=== PATIENT | female | born 1975 | race Caucasian/White ===

== ENCOUNTER 2020-04-26 12:43 | Outpatient (REF) | payer BC, SELFPAY | END 2020-04-26 12:44 | disposition home or self-care (01) | LOC: HO.LAB 12:43 | PROVIDERS: Visit Provider Internal Medicine | DX: Z20.822 Contact with and (suspected) exposure to COVID-19 (principal) | CPT/HCPCS: 36415; C9803; U0003; U0005 ==

== ENCOUNTER 2024-02-25 11:31 | Outpatient (AMB) | payer BC, SELFPAY ==
--- NOTE | 2024-02-25 11:32 | MHC.OFFVIS ---
Vital Signs 02/25/24 11:42 Height 4 ft 11 in Weight 148 lb 2.41 oz BMI 29.9 BP 106/70 Blood Pressure Location Lt brachial Position Sitting Pulse 76 Intake Visit Reasons: pre colonoscopy Intake Note: New patient in office today for colonoscopy screening. CC: Patient reports having a colonoscopy about 20 years ago for rectal bleeding but they did not find any issues . Patient c/o constipation, abdominal pain sometimes, and hearburn sometimes. Allergies No Known Allergies Allergy (Verified 02/25/24 11:44) HPI HPI pre colonoscopy: Details: 48-year-old male here for preprocedural meeting to discuss a screening colonoscopy. He is referred by [facility] adult [facility] in [facility]. PMX Aortic heart murmur High cholesterol IBS * SURGICAL HISTORY * ALLERGIES: NKDA * [place] [facility] LABS: NO CURRENT LABS TODAY'S VISIT She needs to go for labs. 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 This is controlled if she eats well. She also suffers HB but also is having increased anxiety and brain fog. She denies any cardiac or respiratory problems. No prior problems with anesthesia or sedation. No ID problems. There is no known FHX of crc or polyps. [facility] Surgical History (Updated 02/25/24 @ 11:46 by JESUSITA Lal) H/O foot surgery H/O colonoscopy History of section Family History (Updated 02/25/24 @ 11:47 by JESUSITA Lal) Paternal Aunt Pancreatic cancer Paternal Aunt Lung cancer Social History (System 04/16/21 @ 11:39 by Patricai Collins) Alcohol intake: current Alcohol intake frequency: holidays/special occasions only Patient Tobacco Use Status: Never used Tobacco Review of Systems Const Denies fatigue, Denies fever(s), Denies night sweats, Denies poor appetite and Denies weight loss ENT Reports Normal hearing present, Denies dental pain, Denies dysphagia, Denies hearing loss, Denies mouth pain, Denies odynophagia, Denies throat swelling, Denies tongue swelling and Reports other (Dentition adequate) Card Reports no additional complaints Resp Reports no additional complaints GI Details: Denies abdominal pain, Denies melena, Denies bloating, Denies hematochezia, Reports constipation, Denies GI cramping, Denies dysphagia, Denies excessive flatus, Denies early satiety, Denies heartburn, Denies diarrhea, Denies nausea, Denies odynophagia, Denies vomiting and Denies hematemesis Skin/Breast Denies pruritus, Denies lesions, Denies rash and Denies jaundice Neuro Reports Normal hearing present and Denies Abnormal speech present Endo Denies fatigue Aller/Immun Denies throat swelling and Denies tongue swelling Physical Exam Const General: cooperative, no acute distress, well developed and well groomed Nutritional Appearance: average body habitus and well nourished Orientation/consciousness: oriented to person, oriented to place and oriented to time Limitations: No language barrier HEENT Head: Yes normocephalic and Yes atraumatic Eyes General: appearance normal, both eyes and all related structures Pupils: Equal, round and reactive pupils present Neck Neck: Yes normal visual inspection and Yes no lymphadenopathy Thyroid: Thyroid normal Resp Effort & Inspection: normal respiratory effort and able to speak in complete sentences Auscultation: clear to auscultation bilaterally Cardio Rate: regular rate Rhythm: regular rhythm Heart sounds: Normal, physiologic split S2 sound present Peripheral pulses: radial pulses present and posterior tibial pulses present GI Inspection: No distended and No Abdominal panniculus present Palpation (GI): Soft to palpation, nontender, no guarding, not rigid and No hepatosplenomegaly present Percussion: Yes normal to percussion Auscultation: normal bowel sounds Rectal Exam - Female: deferred Skin General skin exam: no rashes or lesions noted, turgor normal, skin not dry, no jaundice, No spider nevi and no striae Rashes: no rashes Nails: normal Neuro General: oriented to person, oriented to place and oriented to time Cranial nerves: Yes Equal, round and reactive pupils present and Yes Normal hearing present Speech: No Abnormal speech present Extrem General: Yes normal to inspection, No clubbing, No cyanosis and No edema Psych Appearance: grossly normal and well kempt Mental Status: mental status grossly normal Speech and movement: Normal speech and movement present Affect: normal affect Attitude: cooperative Thought process: Normal thought process present and not confabulating Thought content: Normal thought content present Insight: Fair insight present (Psych) Judgement: Fair judgement present (Psych) Assessment & Plan Assessment & Plan (1) Pre-op examination: Code(s): Z01.818 - Encounter for other preprocedural examination Category: Medical Plan She needs to go for labs. 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 This is controlled if she eats well. She also suffers HB but also is having increased anxiety and brain fog. She denies any cardiac or respiratory problems. No prior problems with anesthesia or sedation. No ID problems. There is no known FHX of crc or polyps Coding Level of Care Code New Pt Level 3 (22255) Diagnoses Pre-op examination Z01.818
[2024-02-25 11:42] VITALS: BP 106/70; PULSE 76; BMI 29.9
== END 2024-02-25 12:10 | disposition home or self-care (01) ==
PROVIDERS: Visit Provider Nurse Practitioner
DX: Z01.818 Encounter for other preprocedural examination (principal); Z12.11 Encounter for screening for malignant neoplasm of colon
CPT/HCPCS: S0285

== ENCOUNTER → 2024-02-25 11:31 | Outpatient (BNVA) | payer BC, SELFPAY | PROVIDERS: Visit Provider Nurse Practitioner ==

== ENCOUNTER 2024-04-29 10:24 | Outpatient (REF) | payer BC, SELFPAY ==
[2024-04-29 10:38] LABS: MANUAL DIFF FLAG NO
--- OUTSIDE RECORDS SUMMARY | 2024-04-29 11:16 | XMS_ITS ---
Author Organization [facility] Address [address] [place] [address] Care Team Providers Care Harness Mender Name Role Phone Shun AUTOMATION ENGINEERING MANAGER, Hailey Primary Care Provider Unavail able Donna Gagnon Unavailable [phone] REASON FOR VISIT Pedag OTs Encounters Encounter Location Date Provider Diagnosis [facility] [address] [place] [address] 05/15/2023 Donna Gagnon Plan Of Treatment No Information Progress Notes * Hanny GALEAS MDOB:1975 (47 yo F)Acc No.[id number]:05/15/2023 Patient:?Hanny Galeas :1975???Age:47 Y???Sex:Female Address:[address] [place] [address], [address] * true * Date:? Generated for Printi ng/Aislinng/eTransmitting on:?04/29/2024 11:16 AM EST
--- OUTSIDE RECORDS SUMMARY | 2024-04-29 11:17 | XMS_ITS ---
Author Organization [facility] Address [address] [place] [address] Care Team Providers Care Brass And Wind Instrument Repairer Name Role Phone Shun MANUFACTURER'S REPRESENTATIVE, Hailey Primary Care Provider Unavail able Donna Gagnon Unavailable [phone] REASON FOR VISIT DME L3000 Encounters Encounter Location Date Provider Diagnosis [facility] [address] [place] [address] 05/15/2023 Donna Gagnon Plan Of Treatment No Information Progress Notes * Hanny GALEAS MDOB:1975 (47 yo F)Acc No.[id number]:05/15/2023 Patient:?Hanny Galeas :1975???Age:47 Y???Sex:Female Address:[address] [place] [address], [address] * true * Date:? Generated for Printi ng/Aislinng/eTransmitting on:?04/29/2024 11:16 AM EST
--- OUTSIDE RECORDS SUMMARY | 2024-04-29 11:17 | XMS_ITS ---
Author Organization [facility] Address [address] [place] [address] Care Team Providers Care Gem Carver Name Role Phone Shun BACK, Hailey Primary Care Provider Unavail able Donna Gagnon Unavailable [phone] Allergies No Known Allergies REASON FOR VISIT Pcp-09/05, Foot pain Medications Medication SIG (Take, Route, Fr equency, Duration) Notes Start Date End Date Status Multivitamin Active Advil 200 MG 2 tablet with food o r milk as needed Orally PRN Active Percocet Not-Taking Social History Tobacco Use: Social History Observation Description Date Details (start date - stop date) Never Smoker NA - NA Tobacco Use/Smoking Question Answer Notes Are you a: nonsmoker Additional Findings: Tobacco Non-User Current no n-smoker Alcohol Screen Question Answer Notes Did you have a drink contain ing alcohol in the past year? Yes How often did you have a dri nk containing alcohol in the past year? 2 to 3 times a week (3 points) Points 3 Interpretation Positive Tobacco use other than smoking: Question Answer Notes Are you an other tobacco user? No Vital Signs Height 4ft 11in in 05/15/2023 Weight 145 lbs 05/15/2023 BMI 29.28 kg/m2 05/15/2023 Encounters Encounter Location Date Provider Diagnosis [facility] [address] [place] [address] 05/15/2023 Donna Gagnon Primary osteoarthrit is of left foot M19.072 ; Sesamoiditis of left foot M25.872 ; Hallux limitus of left foot M20.5X2 and Pain in left foot M79.672 Assessments Encounter Date Diagnosis (ICD Code) Assessment Notes Treatment Notes Treatment Clinical Notes Section Notes 05/15/2023 Primary osteoarthritis of left foot (ICD-10 - M19.072) 05/15/2023 Sesamoiditis of left foot (ICD-10 - M25.872) 05/15/2023 Hallux limitus of left foot (ICD-10 - M20.5X2) 05/15/2023 Pain in left foot (ICD-10 - M79.672) Plan Of Treatment Next Appt Details Follow Up: prn, Reason: Infe ction Progress Notes * Hanny GALEAS MDOB:1975 (47 yo F)Acc No.[id number]:05/15/2023 Progress Note Patient:?Hanny Galeas Provider:?Donna Gagnon DPM :1975???Age:47 Y???Sex:Female D ate:05/15/2023 Address:[address] [place], [place] [id number] Pcp:Hailey Hoffmann NP Subjective: * Chief Complaints: * ???Pcp-09/05Foot pain * HPI: ???Foot Pain:?Nature:?aching , tenderness , stiffness.?Location:?Inside, Great toe joint, LEFT.?Duration:?several months.?Onset:?gradual , denies trauma.?Course:?unresolved.?Aggrevated:?any pressure , standing , walking , shoes.?Treatments:?rest/alter normal daily activity , change in shoes; Pt had previous Cheilectomy-relates pain at previous spur location resolved innersoles.? * ROS:?General/Constitutional:?Nausea?denies, denies.?Vomiting?denies, denies.?Hunger Thirst?denies, denies.?Loss appetite?denies, denies.?Chills?denies, denies.?Fatigue?denies, denies.?Fever?denies, denies.?Night Sweats denies, denies.?Unexplained weight loss?denies, denies.?Unexplained weight gain?denies, denies.?HEENTM:?Dentures?denies, denies.?Dizziness?denies, denies.?Glasses/contacts?denies, denies.?Retinopathy?denies, denies.?Blurred/double vision?denies, denies.?TMJ?denies, denies.?Discharge/drainage?denies, denies.?Implants?denies, denies.?Sore throat?denies, denies.?Dental implants?denies, denies.?Hard of hearing ?denies, denies.?Difficulty chewing/swallowing/speaking?denies, denies.?Nose bleeds?denies, denies.?Sore mouth?denies, denies.?Respiratory:?On Oxygen?denies, denies.?Pneumonia/pleurisy?denies, denies.?Bronchitis?denies, denies.?Emphysema?denies, denies.?Coughing?denies, denies.?Cough blood?denies, denies.?Shortness of breath?denies, denies.?Wheezing?denies, denies.?Cardiovascular:?Pacemaker?denies, denies.?MVP?denies, denies.?WPW?denies, denies.?CHF?denies, denies.?Heart attack?denies, denies.?Septal defect?denies, denies.?Rapid beat?denies, denies.?Chest pain ?denies, denies.?Atrial Fib.?denies, denies.?Murmur/Palpitations?denies, denies.?Gastrointestinal:?Hemorrhoids?denies, denies.?Stomach/Abdominal pain?denies, denies.?Dark blood stool?denies, denies.?Irritable bowel ?denies, denies.?Constipation?denies, denies.?Diarrhea?denies, denies.?Hematology:?Swelling?denies, denies.?Clots?denies, denies.?Varicose Veins?denies, denies.?Bruising?denies, denies.?Bleeding problem?denies, denies.?Genitourinary:?Blood urine?denies, denies.?Frequent/Painfu/urination/bladder control?denies, denies.?Kidney stones?denies, denies.?Infection (UTI)?denies, denies.?Nephropathy?denies, denies.?sex trans dis (STD)?denies, denies.?Prostate?denies, denies.?Musculoskeletal:?Hammertoes?denies, denies.?Bunions?admits, admits.?Back Pain?denies, denies.?Muscle Cramps/ Resting?denies, denies.?Muscle cramps / walking?denies, denies.?Generalized aches and pains?denies, denies.?Weakness?denies, denies.?Integ.:?Andrews?denies, denies.?Scars?denies, denies.?Corns/calluses?denies, denies.?Ingrown nails?denies, denies.?Painful nails?denies, denies.?Open Sores?denies, denies.?Rashes?denies, denies.?Neurologic:?Difficulty sleeping?denies, denies.?Brain disorder?denies, denies.?Numbness?denies, denies.?Balance trouble?denies, denies.?Confusion?denies, denies.?Fainting/blackouts?denies, denies.?Tingling?denies, denies.?Tremors?denies, denies.? * Medical History:? * Surgical History:? X4 (09/11/08, 12/21/10, 07/13/14, 01/22/16) 09/11/08-01/22/2016left foot surgery 08/01/2020 * Hospitalization/Major Diagno stic Procedure:?Denies Past Hospitalization * Family History:?Mother: hugh crabtree?Father: alive, Stroke, diagnosed with Unspecified heart disease.? * Social History:?Tobacco Use:?Tobacco Use/Smoking?Are you a:?nonsmoker ?Additional Findings: Tobacco Non-User?Current non-smoker ?Tobacco use other than smoking?Are you an other tobacco user??No ???Drugs/Alcohol:?Drugs?Have you used drugs other than those for medical reasons in the past 12 months??No ?Alcohol Screen?Did you have a drink containing alcohol in the past year??Yes ?How often did you have a drink containing alcohol in the past year??2 to 3 times a week (3 points) ?Points?3 ?Interpretation?Positive ???Miscellaneous:?Caffeine: yes, frequency:, 3-5 cups per day. ?Children: yes, 4. ?Exercise: yes, walking, bike riding, dress. ?Marital status: . ?Occupation: [employer]. * Medications:?TakingAdvil 200 MG Tablet 2 tablet with food or milk as needed Orally PRNMultivitamin Taking Advil 200 MG Tablet 2 tablet with food or milk as needed Orally PRNTaking Multivitamin Not-Taking/PRNPercocet Medication List reviewed and reconciled with the patientNot-Taking/PRN Percocet Medication List reviewed and reconciled with the patient * Allergies:?N.K.D.A.yes[Aller gies Verified] Objective: * Vitals:?Ht: 4ft 11in, Wt:145 , BMI:29.28, Shoe size: 6.5, Ht-cm: 149.86 cm, Wt- k.77 kg. * Examination: ???General Examination: ?GENERAL APPEARANCE:?Reveals a pleasant, alert, well-nourished, well- developed, well hydrated individual, who demonstrates proper attention to hygiene/body habitus, and is in no acute distress, Pt serves as own?historian for office visit today.?ORIENTED:?person, place, and time.?Neurological: ?SENSORY:?Neurological exam reveals intact sensorium, pain sensation normal, vibration sensation intact, pinprick sensation is normal in the lower extremities, Pt denies, anesthesia, burning, paresthesia, tingling, B/L.?TINEL'S COMPRESSION:? Negative, Saphenous nerve distribution.?DEEP TENDON REFLEXES:?Achilles, 2/4, B/L.?Vascular: ?DP PULSES:?3/4, B/L.?PT PULSES:?3/4, B/L.?CAPILLARY FILL TIME:?immediate, all digits, B/L.?SKIN TEMPERTURE GRADIENT OF THE LOWER EXTERMITIES:?warm to cool, proximal to distal, B/L.?HAIR GROWTH/TEXTURE/ELASTICITY/TURGOR:?normal, B/L.?PIGMENTATION:?normal, B/L.?EDEMA:?absent, B/L.?Dermatologic: ?SKIN FINDINGS:?Skin exam reveals normal texture, elasticity, and turgor. There are no masses. The interspaces are clear.?Orthopedic: ?MUSCLE STRENGTH:?5/5 all groups in a symmetrical fashion , B/L.?BUNION:?(+) Pain on palpation , Limited 1st MPJ Dorsal ROM , Limited 1st MPJ Plantar ROM , LEFT , Pain on Palpation to Sesamoid.? Assessment: * Assessment: 1.?Primary osteoarthritis of left foot - M19.072, Chronic problem, Worse (4)?2.?Sesamoiditis of left foot - M25.872 (Primary)?3.?Hallux limitus of left foot - M20.5X2?4.?Pain in left foot - M79.672? Plan: * Treatment: * Procedure Codes:? * Preventive Medicine:? ??Counseling:?Discussion:?-13: Office or other outpatient visit for the evaluation and management of an established patient, which required a medically appropriate history and/or examination and LOW level of DECISION MAKING for: 1 STABLE ACUTE UNCOMPLICATED PROBLEM, 2 OR MORE MINOR PROBLEMS, OR 1 STABLE CHRONIC PROBLEM, THAT POSE(S) A LOW RISK FOR MORBIDITY/MORTALITY. The visit on the day of the encounter encompassed interpreting the data and educating the patient as to the nature of their condition, treatment options available according to their individual PMH, meds, allergies, and overall health/living conditions, as well as any potential risks or complications that may occur from a failure to adhere to, and participate in, the recommended course of therapy. The discussion included a complete verbal, and/or written explanation of the examination results, any x-rays taken, the proposed diagnosis, and outline of the treatment plan. A schedule for future care needs was also explained. The patient verbalized an understanding of the instructions at this time and agreed to be an active participant in their treatment. If the patient should think of any questions or concerns after the visit, I have encouraged the patient to call the office.?Arthritis:?The patient was counseled on the various etiologies for their Arthritis including genetic, history of injury or trauma, abnormal foot biomechanics leading to excessive joint wear, and use/overuse. We discussed the various treatment options from no treatment, to topical analgesics such as Biofreeze gel, Aspercream, Voltaren gel, Lidoderm patches, CBD oils, THC creams, and Custom-compounded topical cream preparations to natural oral products such as Glucosamine Sulfate/Chondroitin/MSM/Collegen to analgesic Tylenol, to anti-inflammatory medications such as Ibuprofen/Naproxen, and the use of oral steroids if needed. Cardiac, Kidney, and GI issues were discussed RE: potential complications of oral anti-inflammatories. We discussed several other treatment options consisting of accom shoes, supportive innersoles, AFO bracing/support, cortisone injection therapy, and surgical resection of the arthritic joint(s) or fusion reconstruction if necessary. We discussed the advantages and disadvantages of conservative (vs) surgical treamtents including pain relief, improved function/activities of daily life, return to exercise to failure, expense, systemic complications, infection, [id number], prolongued postop course. Patient questions re: the various treatment options available, their successes and potential failures, and fpc effects were discussed and the answers were verbally confirmed understood.?P.R.I.C.E.:?The patient was counseled on the use of P.R.I.C.E. and NSAIDS (if well tolerated) to aid in the recovery from their painful condition , Recommended Topical analgesics including Biofreeze/Aspercream/Voltaren gel.?Podiatric Surgery Counseling:?Surgical procedures to treat the patients foot problem were discussed. We reviewed the risks of the procedure (described below) vs not having the procedure (persistent pain, deformity, risk for skin ulceration/infection, loss of toe). We discussed the potential procedure complications including, but not limited to: pain, swelling, bleeding, scarring, numbness, infection, delayed/non healing, floppy/unstable/shorthened toe, recurrence, failure of the procedure, overcorrection leading to plantarflexed/downward positioned toe, recurrence, need for further surgery, as well as the possibility for loss of the toe itself. We discussed the use of IV/Local anesthesia, and the usual post-op course for healing. No guarentees were given. The patient verbally indicated a full understanding of the above conversation, and any other of their questions were answered to their satisfaction, Discussed surgical options including a joint replacement and joint fusion. Discussed risks and benefits of the above mentioned procedures and their recovery times..?Shoe Gear Counseling:?The patient and I reviewed the types of shoes they should be wearing. My recommendation included obtaining a well-fitted shoe with a good supportive, non-foldable nor twistable sole, plenty of toe/room for the forefoot, and proper arch support. Based on todays examination, I recommended the patient look for new shoes, by having their feet professionally measured. We discussed that generally the best time of the day for a shoe fitting is the afternoon. Different shoes types and brands to best match the patients occupation and vocation were discussed. Specific brand selection will be up to the patient, their individual foot condition/deformities, and fit. The patient and I reviewed the standard new shoe break in period by wearing them for a few hours a day while checking for redness or sores as wear time is increased. The patient verbally confirmed to understanding the information discussed.?Steriod Injection:?I explained that a steroid and local anesthetic injections are administered to relieve pain and inflammation and thereby meant to improve function. I explained the possible complications including but not limited to signs/symptoms of steroid flare, infection, bruising, atrophy, discoloration of skin, change/deviation in toe position, and that additional injections may be necessary, cortisone post-injection informative educational handout was dispensed to and reviewed with the patient, Pt defers injection today due to schedule will call to have injection.? * Follow Up:?prn (Reason: Infe ction) * Images: * Sign off status: Completed true * Provider:?Donna Gagnon DPM Date:?03/2023 Generated for Martha stallings/Caleb/Cheryl on:?04/29/2024 11:16 AM EST History and Physical Notes * HPI (History of Present Illness) Category Sub-Category Detail Notes Category Not es Foot Pain Nature: aching , tenderness , stiffn ess Location: Inside, Great toe viola int, LEFT Duration: several months Onset: gradual , denies tra gordon Course: unresolved Aggravated: any pressure , stand ing , walking , shoes Treatments: rest/alter normal da bill activity , change in shoes; Pt had previous Cheilectomy-relates pain at previous spur location resolved innersoles Examination Category Sub-Category Detail Notes Category Not es Neurological SENSORY: Neurological exa m reveals intact sensorium, pain sensation normal, vibration sensation intact, pinprick sensation is normal in the lower extremities, Pt denies, anesthesia, burning, paresthesia, tingling, B/L TINEL'S COMPRESSION: Negative, Saphenous nerve distribution DEEP TENDON REFLEXES: Achilles, 2/4, B/L Dermatologic SKIN FINDINGS: Skin exam reveal s normal texture, elasticity, and turgor. There are no masses. The interspaces are clear Orthopedic BUNION: (+) Pain on palp ation , Limited 1st MPJ Dorsal ROM , Limited 1st MPJ Plantar ROM , LEFT , Pain on Palpation to Sesamoid MUSCLE STRENGTH: 5/5 all groups in a symmetrical fashion , B/L General Examination GENERAL APPEARANCE: Reveals a pleasant, alert, well- nourished, well-developed, well hydrated individual, who demonstrates proper attention to hygiene/body habitus, and is in no acute distress, Pt serves as own historian for office visit today ORIENTED: person, place, and t felisha Vascular DP PULSES (B): 3/4, B/L PT PULSES (B): 3/4, B/L CAPILLARY FILL TIME: immediate, all digi ts, B/L TEMPERTURE GRADIENT (C): warm to cool, p roximal to distal, B/L TROPHIC CONDITION-TEXTURE/ELASTICITY/TURGOR/HAIR GROWTH (B): normal, B/L EDEMA (C): absent, B/L PIGMENTATION: normal, B/L
--- OUTSIDE RECORDS SUMMARY | 2024-04-29 11:17 | XMS_ITS | Patient Health Record ---
Author Organization [facility] Address [address] [place] [address] Care Team Providers Care Servicenow Administrator Developer Name Role Phone Shun BACK, Hailey Primary Care Provider Unavail able Donna Gagnon Unavailable [phone] Allergies No Known Allergies Reason For Referral No Information Medications Medication SIG (Take, Route, Fr equency, Duration) Notes Start Date End Date Status Multivitamin Active Advil 200 MG 2 tablet with food o r milk as needed Orally PRN Active Percocet Not-Taking Immunizations Vaccine Route Administration Date Status Comme nts COVID-19 Pfizer BioNTech Vaccine Unknown 06/04/2020 Administered Second Dose: 06/19/2020 Social History Tobacco Use: Social History Observation [...] Are you an other tobacco user? No Problems Problem Type SNOMED Code ICD Code Onset Dates Problem Status W/U Status Risk Notes Problem [id number] Hallux valgus (acquired), left foot (M20.12) Active confirmed Problem [id number] Primary osteoarthritis of left foot (M19.072) Active confirmed Vital Signs Height 4ft 11in in 05/15/2023 Weight 145 lbs 05/15/2023 BMI 29.28 kg/m2 05/15/2023 Encounters Encounter Location Date Provider Diagnosis [facility] [address] 05/15/2023 Donna Gagnon Primary osteoarthrit is of left foot M19.072 ; Sesamoiditis of left foot M25.872 ; Hallux limitus of left foot M20.5X2 and Pain in left foot M79.[address] [facility] [address] 05/15/2023 Donna [facility]agnon [facility] [address] 05/15/2023 Donna Gagnon Assessments Encounter Date Diagnosis (ICD Code) Assessment Notes Treatment Notes Treatment Clinical Notes Section Notes 05/15/2023 Primary osteoarthritis of left foot (ICD-10 - M19.072) 05/15/2023 Sesamoiditis of left foot (ICD-10 - M25.872) 05/15/2023 Hallux limitus of left foot (ICD-10 - M20.5X2) 05/15/2023 Pain in left foot (ICD-10 - M79.672) Plan Of Treatment Pending Test Test Name Order Date X ray : Foot, left 3V 07/03/2020 X ray : Foot, left 3V 08/07/2020 X ray : Foot, left 3V 01/07/2022 X ray : Foot, left 3V 02/20/2023 [id number], [id number], JOINT/BURSA 1 Insurance Providers Payer Name Payer Address Payer Phone Subscriber Number Group Number Insured Name Patient Relationship to Insured Coverage Start Date Coverage End Date [facility] All Others [address] [place] [address] [id number] Hanny Flores Self - patient is the insured Medical (General) History Medical History History ICD Code asthma Surgical History Surgery Date(Month/Year) X4 (09/11/08, 12/21/10, , 01/22/16) 09/11/08-01/22/2016 left foot surgery 08/01/2020
[2024-04-29 11:28] LABS: Basophils Percent Auto 0.4 % (0-2); Eosinophils Absolute Auto 0.2 X10*3/uL (0.0-0.4); Eosinophils Percent Auto 2.7 % (0-4); Hematocrit 38.6 % (37.0-47.0); Hemoglobin 13.5 g/dl (12.0-16.0); Imm Gran Abs Auto 0.02 X10*3/uL (0.00-0.03); Imm Gran Pct Auto 0.3 % (0.0-0.4); Lymphocytes Absolute Auto 1.6 X10*3/uL (1.2-4.9); Lymphocytes Percent Auto 24.1 % (20-40); Mean Corpuscular Hemoglobin 31.4 pg (27.0-33.0); Mean Corpuscular Volume 89.8 fL (80.0-98.0); Mean Platelet Volume 9.6 fL (9.4-12.3); Monocytes Absolute Auto 0.6 X10*3/uL (0.1-1.2); Monocytes Percent Auto 8.6 % (2-11); Neutrophils Absolute Auto 4.3 x10*3/uL (2.0-8.3); Neutrophils Percent Auto 63.9 % (45-73); Platelet Count 335 X10*3/uL (160-400); White Blood Count 6.7 X10*3/uL (4.8-10.8)
[2024-04-29 12:04] LABS: Alanine Aminotransferase 24 U/L (0-31); Albumin Level 4.7 g/dL (3.5-5.0); Alkaline Phosphatase 40 U/L (39-117); Anion Gap 10 (12-20); Aspartate Amino Transferase 23 U/L (5-31); Bilirubin Total 0.7 mg/dL (0.0-1.0); Blood Urea Nitrogen 11 mg/dL (9-16); Calcium 9.3 mg/dL (8.4-10.2); Carbon Dioxide 26 mmol/L (22-29); Chloride 106 mmol/L (96-108); Estimated Glomerular Filt Rate > 60; Glucose Random 93 mg/dL (60-115); Potassium 4.5 mmol/L (3.3-5.1); Sodium 137 mmol/L (135-145); Total Protein 7.3 g/dL (6.5-8.0)
== END 2024-04-29 10:25 | disposition home or self-care (01) ==
LOC: HO.LAB 10:24
PROVIDERS: PCP Nurse Practitioner Family; Visit Provider Nurse Practitioner
DX: Z01.818 Encounter for other preprocedural examination (principal)
CPT/HCPCS: 36415; 80053; 85025

== ENCOUNTER 2024-07-12 07:47 | Day surgery (SDC) | payer BC, SELFPAY ==
--- OUTSIDE RECORDS SUMMARY | 2024-05-17 12:54 | XMS_ITS ---
[facility] Organization [facility] Address [address] [place] [address] Care Team Providers Care Physician Pediatrician Name Role Phone Shun FUNERAL PLANNER, Hailey Primary Care Provider Unavail able Donna Gagnon Unavailable [phone] REASON FOR VISIT DME L3000 Encounters Encounter Location Date Provider Diagnosis [facility] [address] [place] [address] 05/15/2023 Donna Gagnon Plan Of Treatment No Information Progress Notes * Hanny GALEAS MDOB:1975 (47 yo F)Acc No.[id number]:05/15/2023 Patient:?Hanny Galeas :1975???Age:47 Y???Sex:Female Address:[address] [place] [address], [address] * true * Date:? Generated for Printi haylie/Caleb/eTransmitting on:?05/17/2024 12:54 PM EST
--- OUTSIDE RECORDS SUMMARY | 2024-05-17 12:54 | XMS_ITS ---
Author Organization [facility] Address [address] [place] [address] Care Team Providers Care Lock Installer Name Role Phone Shun BACK, Hailey Primary Care Provider Unavail able Donna Gagnon Unavailable [phone] Allergies No Known Allergies REASON FOR VISIT [...] 05/15/2023 Encounters Encounter Location Date Provider Diagnosis [facility] [address] [place] [address] 05/15/2023 Donna Gagnon Primary osteoarthrit is of [...] * Hanny GALEAS MDOB:1975 (47 yo F)Acc No.[id number]:05/15/2023 Progress Note Patient:?Hanny Galeas Provider:?Donna Gagnon DPM :1975???Age:47 Y???Sex:Female D ate:05/15/2023 Address:[address] [place], [place] [id number] Pcp:Hailey Hoffmann NP Subjective: * Chief Complaints: [...] exercise to failure, expense, systemic complications, infection, [id number], prolongued postop course. Patient questions re: the various treatment options available, their successes and potential failures, and local company intermodal truck driver effects were discussed and the answers were [...] Gagnon DPM Date:?03/2023 Generated for Martha stallings/Caleb/Cheryl on:?05/17/2024 12:53 PM EST History and Physical Notes * HPI [...]
--- OUTSIDE RECORDS SUMMARY | 2024-05-17 12:54 | XMS_ITS ---
Author Organization [facility] Address [address] [place] [address] Care Team Providers Care Plaster Applicator Name Role Phone Shun TESTING DIRECTOR, Hailey Primary Care Provider Unavail able Donna Gagnon Unavailable [phone] REASON FOR VISIT Pedag OTs Encounters Encounter Location Date Provider Diagnosis [facility] [address] [place] [address] 05/15/2023 Donna Gagnon Plan Of Treatment No Information Progress Notes * Hanny GALEAS MDOB:1975 (47 yo F)Acc No.[id number]:05/15/2023 Patient:?Hanny Galeas :1975???Age:47 Y???Sex:Female Address:[address] [place] [address], [address] * true * Date:? Generated for Printi haylie/Fanixong/eTransmitting on:?05/17/2024 12:53 PM EST
--- OUTSIDE RECORDS SUMMARY | 2024-05-17 12:54 | XMS_ITS | Patient Health Record ---
Author Organization [facility] Address [address] [place] [address] Care Team Providers Care Graphic Design Teacher Name Role Phone Shun BACK, Hailey Primary Care Provider Unavail able Donna Gagnon Unavailable [phone] Allergies No Known Allergies Reason For Referral [...] Problem Status W/U Status Risk Notes Problem [id number] Hallux valgus (acquired), left foot (M20.12) Active confirmed Problem 1212768523923798 Primary osteoarthritis of left foot (M19.072) Active confirmed Plan Of Treatment Pending Test Test Name Order Date X ray : Foot, left 3V 07/03/2020 X ray : Foot, left 3V 08/07/2020 X ray : Foot, left 3V 01/07/2022 X ray : Foot, left 3V 02/20/2023 [id number], [id number]/[id number], JOINT/BURSA 1 Insurance Providers Payer Name Payer Address Payer Phone Subscriber Number Group Number Insured Name Patient Relationship to Insured Coverage Start Date Coverage End Date [facility] All Others [address] [place] [address] [id number] Hanny Flores Self - patient is the insured Medical (General) History Medical History History ICD Code asthma Surgical History Surgery Date(Month/Year) X4 (09/11/08, 12/21/10, , 01/22/16) 09/11/08-01/22/2016 left foot surgery 08/01/2020
[2024-07-08 14:30] VITALS: BMI 29.9
--- NOTE | 2024-07-11 09:07 | HO.ANESPROP2 ---
Documented by User: Flaquita Lopes NP 07/11/24 09:07 HPI - Anesthesia Eval Consult details Narrative: 48yo F for Colonoscopy PMFSH Active Problems Active Problems: All Active Problems Pre-op examination (Acute) IBS (irritable bowel syndrome) (Acute) High cholesterol (Acute) Aortic heart murmur (Acute) Past Medical History Medical History (Updated 07/08/24 @ 14:30 by Tatyana Lei RN) IBS (irritable bowel syndrome) Murmur Elevated cholesterol Family History Family History (Updated 02/25/24 @ 11:47 by JESUSITA Lal) Paternal Aunt Pancreatic cancer Paternal Aunt Lung cancer Surgical History Surgical History (Updated 02/25/24 @ 11:46 by JESUSITA Lal) H/O foot surgery H/O colonoscopy History of section Social History Social History (Updated 02/25/24 @ 11:47 by JESUSITA Lal) Alcohol intake: current Alcohol intake frequency: holidays/special occasions only Patient Tobacco Use Status: Never used Tobacco Meds Allergies Allergy/AdvReac Type Severity Reaction Status Date / Time No Known Allergies Allergy Verified 07/12/24 08:55 Home Medications ?Medication ?Instructions ?Recorded ?Confirmed ?Last Taken ?Type Bacillus coagulans 800 million cell PO 02/25/24 07/09/24 History cell tablet cholecalciferol (vitamin D3) 25 25 mcg PO DAILY 02/25/24 07/12/24 07/09/24 History mcg (1,000 unit) capsule multivitamin 1 tab PO DAILY 02/25/24 07/12/24 07/09/24 History Exam Height,Weight and Vital Signs: Height 4 ft 11 in Weight 67.132 kg Assessment and Plan Assessment Anesthesia Assessment: Chart Reviewed Documented by User: Herson Nash MD 07/12/24 10:25 PMFSH Past Medical History Medical History (Updated 07/08/24 @ 14:30 by Tatyana Lei RN) IBS (irritable bowel syndrome) Murmur Elevated cholesterol Patient : No Family History Family History (Updated 02/25/24 @ 11:47 by JESUSITA Lal) Paternal Aunt Pancreatic cancer Paternal Aunt Lung cancer Family history of problems with anesthesia: No Surgical History Surgical History (Updated 02/25/24 @ 11:46 by JESUSITA Lal) H/O foot surgery H/O colonoscopy History of section History of Problems with Anesthesia: No Social History Social History (Updated 02/25/24 @ 11:47 by JESUSITA Lal) Alcohol intake: current Alcohol intake frequency: holidays/special occasions only Patient Tobacco Use Status: Never used Tobacco Meds Allergies Allergy/AdvReac Type Severity Reaction Status Date / Time No Known Allergies Allergy Verified 07/12/24 08:55 Home Medications ?Medication ?Instructions ?Recorded ?Confirmed ?Last Taken ?Type Bacillus coagulans 800 million cell PO 02/25/24 07/09/24 History cell tablet cholecalciferol (vitamin D3) 25 25 mcg PO DAILY 02/25/24 07/12/24 07/09/24 History mcg (1,000 unit) capsule multivitamin 1 tab PO DAILY 02/25/24 07/12/24 07/09/24 History Exam Airway Mallampati Class: I TM Dist: <=3cm Neck ROM: Full Partial: Upper and Lower Loose/Missing/Broken Teeth: No Heart: ok Lungs: ok Assessment and Plan Assessment Anesthesia Assessment: Anesthesia Plan Discussed Final Anesthetic Review Family History of Problems with Anesthesia: No History of Problems with Anesthesia: No NPO: Yes ASA Class: II Final Preanesthetic Review: No Changes in Pt Med Stat, Meds/Allgs Chart Reviewed, Consent Obtained/Reviewed and Anes Risks/Benef Reviewed Patient Risk: Low Procedure Risk: Low Anesthetic Plan Anesthetic Plan: MAC: and Agree w/ Assess. and Plan Disposition: Standard PACU
[2024-07-12 08:59] VITALS: BMI 29.3
[2024-07-12 09:05] VITALS: BP 130/76; PULSE 72; RESP 20; TEMP 37.2; O2SAT 100
[2024-07-12 09:15] LABS: UPreg QC Valid YES
[2024-07-12] MEDS: Lactated Ringers 1,000 ML 100 ML IVCONT (09:16)
[2024-07-12 09:17] LABS: Urine Pregnancy NEGATIVE (NEGATIVE)
--- NOTE | 2024-07-12 10:06 | P.HPSUR_ITS ---
Pre-Procedural Eval Section A - 24 Hr Update-Section A only Date of Service: 07/12/24 Section B - Complete if H&P > 30 days Chief Complaint: Encounter for screening for malignant neoplasm of Relevant Family History (Specify if Yes): No Relevant Social History: None Present Medications: see Short Stay Collaborative assessment Medical History: Significant History (IBS (irritable bowel syndrome) Murmur El evated cholesterol) History of Previous Operations: Relevant previous surgery/procedure and date(s) (H/O foot surgery H/O colonoscopy History of section) Allergies: Allergies Allergy/AdvReac Type Severity Reaction Status Date / Time No Known Allergies Allergy Verified 07/12/24 08:55 Review of Systems Sugical H&P ROS: Negative: Constitution, Cardiovascular, Respiratory, Neurological, Psychiatric, Hem-Onc, Allergic/Immunologic, Gastrointestinal, Genitourinary, Musculoskeletal, Integumentary, Endocrine and Eyes/Ears/Nose/Throat Exam Surgical H&P Exam: Normal: HEENT, Normal: Heart, Normal: Lungs, Normal: Extremities, Normal: Abdomen, Normal: Skin and Normal: Neurological Plan Diagnosis/Plan: Unchanged I have reviewed the history and physical and performed a pertinent physical examination on my patient. No changes have occurred unless specified. Time Spent With Patient Time: Total time managing care of this patient today ____ minutes.
--- NOTE | 2024-07-12 10:40 | HO.OPN-COLON ---
Colonoscopy Operative Note Operative Note Date of Service: 07/12/24 Narrative: Operative Information Procedure Description: Colonoscopy Indication: colo screening Anesthesia: MAC COLONOSCOPY Instrument: Olympus variable stiffness pediatric scope 190L Colonoscopy Monitoring: Vital signs and clinical assessment, continuous EKG monitoring, Pulse oximetry, Carbon Dioxide monitoring and blood pressure monitoring were done throughout the procedure. Colon withdrawal time was 13 minutes. Procedure: The patient was placed in the left lateral decubitis position and pre-procedure medications were administered. After a digital rectal examination of the ano-rectum, the video colonoscope was inserted into the rectum and advanced through the colon to the cecum/TI. The colonoscope was slowly withdrawn in a retrograde panoramic fashion and the colon mucosa was carefully examined including a retroflexed view of the rectum. Findings and interventions are described below. Procedure Difficulty: easy Findings: Terminal Ileum-normal diffuse melanosis coli noted Cecum:normal Ascending Colon: normal Transverse Colon -normal Descending Colon:normal Sigmoid Colon: normal Rectum: Retroflexion with small internal hemorrhoids seen, grade I, at about 12-14 cm from anal verge a flat polyp noted about 10-12 mm- lifted with eleview and then removed with cold snare piece meal Anorectum - normal Intervention: cold snare with eleview and EMR Colon preparation: [place] Bowel Preparation Scale Right colon; 2 Transverse colon: 3 Left colon; 3 (0 = Unprepared colon segment with mucosa not seen due to solid stool that cannot be cleared. 1 = Portion of mucosa of the colon segment seen, but other areas of the colon segment not well seen due to staining, residual stool and/or opaque liquid. 2 = Minor amount of residual staining, small fragments of stool and/or opaque liquid, but mucosa of colon segment seen well. 3 = Entire mucosa of colon segment seen well with no residual staining, small fragments of stool or opaque liquid) Impression and Post Procedure Diagnosis: melanosis coli colon polyp internal hemorrhoids Plan: High fiber diet leaflet Avoid straining at stool, epsom salts and sitz bath, anusol supps or cream Repeat Colonoscopy in 6-12 months or earlier depending on path Above findings were reviewed with the patient and relevant handouts were provided if indicated.
[2024-07-12 10:47] VITALS: BP 105/65; PULSE 67; RESP 18; TEMP 36.6; O2SAT 99
[2024-07-12 11:02] VITALS: BP 122/82; PULSE 65; RESP 20; TEMP 36.6; O2SAT 100
== END 2024-07-12 11:23 | disposition home or self-care (01) ==
PROVIDERS: Nurse Practitioner; PCP Nurse Practitioner Family; Visit Provider Internal Medicine Gastroenterology
PROC: 0DJD8ZZ Inspection of Lower Intestinal Tract, Via Natural or Artificial Opening Endoscopic (ICD-10-PCS; CPT 45378; principal; 2024-07-12 10:20)
DX: Z12.11 Encounter for screening for malignant neoplasm of colon (principal); K62.1 Rectal polyp; K63.89 Other specified diseases of intestine; K64.0 First degree hemorrhoids; K58.9 Irritable bowel syndrome, unspecified; E78.00 Pure hypercholesterolemia, unspecified; R01.1 Cardiac murmur, unspecified; Z79.899 Other long term (current) drug therapy
CPT/HCPCS: 45385; 45381; 81025; 88305; J2003; J2704

== ENCOUNTER → 2024-07-12 07:47 | Outpatient (BNV) | payer BC, SELFPAY | PROVIDERS: PCP Nurse Practitioner Family; Visit Provider Internal Medicine Gastroenterology | DX: Z12.11 Encounter for screening for malignant neoplasm of colon (principal); K62.1 Rectal polyp; K63.89 Other specified diseases of intestine; K64.0 First degree hemorrhoids | CPT/HCPCS: 45381; 45385 ==

== ENCOUNTER 2024-08-02 13:56 | Outpatient (AMB) | payer BC, SELFPAY ==
--- NOTE | 2024-08-02 14:00 | A.OFFVIS_ITS ---
Vital Signs 08/02/24 14:02 Height 4 ft 11 in Weight 147 lb 11.355 oz BMI 29.8 BP 108/83 Blood Pressure Location Lt brachial Position Sitting Pulse 88 Intake Visit Reasons: s/p chauncey Fofana Shipboard Intelligence Analyst Required: No Allergies No Known Allergies Allergy (Verified 08/02/24 14:02) HPI HPI s/p chauncey Fofana: Details: Assessment & Plan (1) Pre-op examination: Code(s): Z01.818 - Encounter for other preprocedural examination Category: Medical Plan She needs to go for labs. 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 This is controlled if she eats well. She also suffers HB but also is having increased anxiety and brain fog. She denies any cardiac or respiratory problems. No prior problems with anesthesia or sedation. No ID problems. There is no known FHX of crc or polyps COLONOSCOPY Findings: Terminal Ileum-normal diffuse melanosis coli noted Cecum:normal Ascending Colon: normal Transverse Colon -normal Descending Colon:normal Sigmoid Colon: normal Rectum: Retroflexion with small internal hemorrhoids seen, grade I, at about 12- 14 cm from anal verge a flat polyp noted about 10-12 mm- lifted with eleview and then removed with cold snare piece meal Anorectum - normal Intervention: cold snare with eleview and EMR Impression and Post Procedure Diagnosis: melanosis coli colon polyp internal hemorrhoids Plan: High fiber diet leaflet Avoid straining at stool, epsom salts and sitz bath, anusol supps or cream Repeat Colonoscopy in 6-12 months or earlier depending on path BIOPSY Received: 07/12/24 Diagnosis Rectum, polypectomy: Hyperplastic mucosal polyp TODAY'S VISIT The chart from the endoscopist shows very good prep, so I think that the note was incorrect in the 1 year call back - ? wrong chart. This especially since the polyp was hyperplastic only. I verify again that there is absolutely no family history of colon cancer or polyps. I educate her that if this ever changes she can let us know and she is always welcome back to our office sooner. With no FHX I advise a 10 year follow up or sooner if concerning sx. The procedure was well tolerated. The results were explained and the patient is agreeable to the follow-up interval as stated. The bowel pattern has returned to normal. Education was provided to tell any 1st degree relatives about their findings to be sure that they are screened by age 45. Educated that they will be put on a recall list when it is time for their repeat scope but should they move out of state or away from the hospital they will need to remember along with their primary to repeat the procedure in a timely fashion to avoid any adverse complications. [facility] Medical History (Updated 08/02/24 @ 14:23 by LEANNA Alarcon) Pre-op examination IBS (irritable bowel syndrome) Murmur Elevated cholesterol Surgical History (Updated 08/02/24 @ 14:23 by LEANNA Alarcon) H/O foot surgery H/O colonoscopy History of section Family History Paternal Aunt Pancreatic cancer Paternal Aunt Lung cancer Social History Alcohol intake: current Alcohol intake frequency: holidays/special occasions only Patient Tobacco Use Status: Never used Tobacco Review of Systems Const Denies fatigue, Denies fever(s), Denies night sweats, Denies poor appetite and Denies weight loss ENT Reports Normal hearing present, Denies dental pain, Denies dysphagia, Denies hearing loss, Denies mouth pain, Denies odynophagia, Denies throat swelling, Denies tongue swelling and Reports other (Dentition adequate) Card Reports no additional complaints Resp Reports no additional complaints GI Details: Denies abdominal pain, Denies melena, Denies bloating, Denies hematochezia, Denies constipation, Denies GI cramping, Denies dysphagia, Denies excessive flatus, Denies early satiety, Denies heartburn, Denies diarrhea, Denies nausea, Denies odynophagia, Denies vomiting and Denies hematemesis Skin/Breast Denies pruritus, Denies lesions, Denies rash and Denies jaundice Neuro Reports Normal hearing present and Denies Abnormal speech present Endo Denies fatigue Aller/Immun Denies throat swelling and Denies tongue swelling Physical Exam Vital Signs: Last Vital Signs Pulse 88 08/02/24 14:02 BP 108/83 08/02/24 14:02 BMI result Body Mass Index 29.8 Const General: cooperative, no acute distress, well developed and well groomed Nutritional Appearance: well nourished and overweight Orientation/consciousness: oriented to person, oriented to place and oriented to time Limitations: No language barrier HEENT Head: Yes normocephalic and Yes atraumatic Eyes General: appearance normal, both eyes and all related structures Pupils: Equal, round and reactive pupils present Neck Neck: Yes normal visual inspection and Yes no lymphadenopathy Thyroid: Thyroid normal Resp Effort & Inspection: normal respiratory effort and able to speak in complete sentences Auscultation: clear to auscultation bilaterally Cardio Rate: regular rate Rhythm: regular rhythm Heart sounds: Normal, physiologic split S2 sound present Peripheral pulses: radial pulses present and posterior tibial pulses present GI Inspection: No distended, No Abdominal panniculus present and Yes obesity Palpation (GI): Soft to palpation, nontender, no guarding, not rigid and No hepatosplenomegaly present Percussion: Yes normal to percussion Auscultation: normal bowel sounds Rectal Exam - Female: deferred Skin General skin exam: no rashes or lesions noted, turgor normal, skin not dry, no jaundice, No spider nevi and no striae Rashes: no rashes Nails: normal Neuro General: oriented to person, oriented to place and oriented to time Cranial nerves: Yes Equal, round and reactive pupils present and Yes Normal hearing present Speech: No Abnormal speech present Extrem General: Yes normal to inspection, No clubbing, No cyanosis and No edema Psych Appearance: grossly normal and well kempt Mental Status: mental status grossly normal Speech and movement: Normal speech and movement present Affect: normal affect Attitude: cooperative Thought process: Normal thought process present and not confabulating Thought content: Normal thought content present Insight: Good insight present (Psych) Judgement: Good judgement present (Psych) Assessment & Plan Assessment & Plan (1) H/O colonoscopy: Comment: 2024 scope= hyperplastic polyp only repeat in 10 years Code(s): Z98.890 - Other specified postprocedural states Category: Medical Plan The chart from the endoscopist shows very good prep, so I think that the note was incorrect in the 1 year call back - ? wrong chart. This especially since the polyp was hyperplastic only. I verify again that there is absolutely no family history of colon cancer or polyps. I educate her that if this ever changes she can let us know and she is always welcome back to our office sooner. With no FHX I advise a 10 year follow up or sooner if concerning sx. The procedure was well tolerated. The results were explained and the patient is agreeable to the follow-up interval as stated. The bowel pattern has returned to normal. Education was provided to tell any 1st degree relatives about their findings to be sure that they are screened by age 45. Educated that they will be put on a recall list when it is time for their repeat scope but should they move out of state or away from the hospital they will need to remember along with their primary to repeat the procedure in a timely fashion to avoid any adverse complications. Coding Level of Care Code Est Pt Level 3 (65317) Diagnoses H/O colonoscopy Z98.890
[2024-08-02 14:02] VITALS: BP 108/83; PULSE 88; BMI 29.8
--- OUTSIDE RECORDS SUMMARY | 2024-08-02 15:19 | XMS_ITS | Patient Health Record ---
Author Organization [facility] Address [address] [place] [address] Care Team Providers Care Drywaller Name Role Phone Shun BACK, Hailey Primary Care Provider Unavail able Donna Gagnon Unavailable [phone] Allergies No Known Allergies Reason For Referral [...] Problem Status W/U Status Risk Notes Problem [id number] Hallux valgus (acquired), left foot (M20.12) Active confirmed Problem [id number] Primary osteoarthritis of left foot (M19.072) Active confirmed Plan Of Treatment Pending Test Test Name Order Date X ray : Foot, left 3V 07/03/2020 X ray : Foot, left 3V 08/07/2020 X ray : Foot, left 3V 01/07/2022 X ray : Foot, left 3V 02/20/2023 [id number], [id number]/[id number], JOINT/BURSA 1 Insurance Providers Payer Name Payer Address Payer Phone Subscriber Number Group Number Insured Name Patient Relationship to Insured Coverage Start Date Coverage End Date [facility] All Others [address] [place] [address] [id number] Hanny Flores Self - patient is the insured Medical (General) History Medical History History ICD Code asthma Surgical History Surgery Date(Month/Year) X4 (09/11/08, 12/21/10, , 01/22/16) 09/11/08-01/22/2016 left foot surgery 08/01/2020
--- OUTSIDE RECORDS SUMMARY | 2024-08-02 15:19 | XMS_ITS ---
Author Organization [facility] Address [address] [place] [address] Care Team Providers Care Weigh Box Tender Name Role Phone Shun BACK, Hailey Primary Care Provider Unavail able Donna Gagnon Unavailable [phone] Allergies No Known Allergies REASON FOR VISIT [...] 05/15/2023 Encounters Encounter Location Date Provider Diagnosis [facility] [address] [place] [address] 05/15/2023 Donna Gagnon Primary osteoarthrit is of [...] * Hanny GALEAS MDOB:1975 (47 yo F)Acc No.[id number]:05/15/2023 Progress Note Patient:?Hanny Galeas Provider:?Donna Gagnon DPM :1975???Age:47 Y???Sex:Female D ate:05/15/2023 Address:[address] [place], [place] [id number] Pcp:Hailey Hoffmann NP Subjective: * Chief Complaints: [...] exercise to failure, expense, systemic complications, infection, [id number], prolongued postop course. Patient questions re: the various treatment options available, their successes and potential failures, and middle or intermediate school principal effects were discussed and the answers were [...] Gagnon DPM Date:?03/2023 Generated for Martha stallings/Caleb/Cheryl on:?08/02/2024 03:19 PM EDT History and Physical Notes * HPI (History [...]
--- OUTSIDE RECORDS SUMMARY | 2024-08-02 15:19 | XMS_ITS ---
Author Organization [facility] Address [address] [place] [address] Care Team Providers Care Software Designer Name Role Phone Shun LIAISON ENGINEER, Hailey Primary Care Provider Unavail able Donna Gagnon Unavailable [phone] REASON FOR VISIT Pedag OTs Encounters Encounter Location Date Provider Diagnosis [facility] [address] [place] [address] 05/15/2023 Donna Gagnon Plan Of Treatment No Information Progress Notes * Hanny GALEAS MDOB:1975 (47 yo F)Acc No.[id number]:05/15/2023 Patient:?Hanny Galeas :1975???Age:47 Y???Sex:Female Address:[address] [place] [address], [address] * true * Date:? Generated for Printi ng/Faxing/eTransmitting on:?08/02/2024 03:19 PM EDT
--- OUTSIDE RECORDS SUMMARY | 2024-08-02 15:19 | XMS_ITS ---
Author Organization [facility] Address [address] [place] [address] Care Team Providers Care Engineering Technical Writer Name Role Phone Shun OIL CHANGE TECHNICIAN, Hailey Primary Care Provider Unavail able Donna Gagnon Unavailable [phone] REASON FOR VISIT DME L3000 Encounters Encounter Location Date Provider Diagnosis [facility] [address] [place] [address] 05/15/2023 Donna Gagnon Plan Of Treatment No Information Progress Notes * Hanny GALEAS MDOB:1975 (47 yo F)Acc No.[id number]:05/15/2023 Patient:?Hanny Galeas :1975???Age:47 Y???Sex:Female Address:[address] [place] [address], [address] * true * Date:? Generated for Printi ng/Fanixong/eTransmitting on:?08/02/2024 03:19 PM EDT
== END 2024-08-02 14:19 | disposition home or self-care (01) ==
LOC: HO.HGI 13:56
PROVIDERS: PCP Nurse Practitioner Family; Visit Provider Nurse Practitioner
DX: Z98.890 Other specified postprocedural states (principal)
CPT/HCPCS: 99213